=== PATIENT | female | born 1965 | race Caucasian/White ===

== ENCOUNTER 2017-11-15 07:54 | Outpatient (CLI) | payer OTHER ==
--- NOTE | 2017-11-21 14:25 | MMO ---
BILATERAL SCREENING MAMMOGRAM: Date: 11/15/17 COMPARISON: 03/12/10. HISTORY: Screening mammography. FINDINGS: This patient's mammogram was interpreted with the assistance of computer-aided detection. The breast parenchyma is primarily fatty replaced. Benign calcifications are present bilaterally. There is no dominant mass or architectural distortion. No concerning microcalcifications are noted. IMPRESSION: BIRADS 2: Benign Finding(s) Annual screening mammography recommended. POS: [facility]
== END 2017-11-15 07:55 | disposition home or self-care (01) ==
LOC: SCSMAMMO 07:54
PROVIDERS: ATTEND Family Medicine
DX: Z12.31 Encounter for screening mammogram for malignant neoplasm of breast (principal)
CPT/HCPCS: 77067

== ENCOUNTER 2017-12-08 12:38 | Outpatient (CLI) | payer OTHER ==
--- NOTE | 2017-12-08 14:07 | MRI ---
MRI CERVICAL SPINE WITHOUT CONTRAST: HISTORY: Left shoulder pain, extending to her jaw x 3 months. COMPARISON: None. TECHNIQUE: Cervical spine MRI is performed without intravenous Gadolinium administration. Multisequential, mult iplanar imaging is performed. FINDINGS: There is diffuse T1 hypointensity of the visualized cervical and upper thoracic vertebrae as well as the clivus. Correlate for anemia or a marrow infiltrative process. Visualized parenchyma, cervicome dullary junction, cervical cord, and the upper thoracic cord have a normal size and signal intensity. No significant SIR hyperintensity to suggest vertebral body edema or ligamentous injury. C2-C3: Minimal central disk-osteophyte complex. No significant central canal stenosis. Neural fora micky are patent. C3-C4: No significant disk-osteophyte complex. No significant central canal stenosis. Mild bilater al foraminal narrowing. C4-C5: Broad-based disk-osteophyte complex abuts the thecal sac. Mild right foraminal narrowing. T he left neural foramen appears to be patent. C5-C6: There is a central disk-osteophyte complex that deforms the thecal sac and deforms the ventra l cord. Moderate central canal stenosis. No T2 hyperintensity of the cord. Bilaterally, neural for kian are patent. C6-C7: There is a broad-based left paracentral disk-osteophyte complex with superior disk extrusion to the posterior margin of C6. There is deformity of the central and left aspect of the cord. No T2 hyperintensity of the cord. Moderate central canal stenosis. Mild right foraminal narrowing. Left neural foramen is patent. C7-T1: No significant disk-osteophyte complex. No significant central canal stenosis. Neural francia en are patent. IMPRESSION: Degenerative change of the cervical spine as detailed above. There is moderate central canal stenosi s at C5-C6, C6 vertebral body, and the C6-C7 level due to disk-osteophyte complexes as defined above. POS: [facility]
--- NOTE | 2017-12-08 14:44 | MRI ---
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 FINDINGS: There is advanced osteoarthritic change involving the glenohumeral joint with multiple subchondral cy st-like abnormalities seen involving the central glenoid and posterior glenoid. There is a type II S LAP tear extending from approximately the 2 o'clock position through the 4 to 5 o'clock position. Th ere is a paralabral cyst seen along the inferior and posterior aspect of the glenoid measuring 1.1 cm . There is moderate tendinosis of the intraarticular biceps tendon. There is moderate AC joint oste oarthrosis. There is mild tendinosis of the supraspinatus and infraspinatus. A small amount of flui d is seen in the subacromial and subdeltoid bursa. No muscular atrophy is evident. IMPRESSION: 1. Prominent areas of full-thickness articular cartilage thinning and subchondral cyst formation inv olving the central and posterior glenoid suspicious for changes of osteoarthrosis. This can be secon snehal to entity such as calcium pyrophosphate dihydrate deposition disease or prior trauma. Recommend correlation with patient's radiograph. 2. Findings suspicious of a long type II superior labrum anterior to posterior tear extending from a pproximately the 2 o'clock position to estimated to approximately the 4 o'clock position. The full e xtent of the this labral tear is not fully delineated on the current examination due to the lack of i ntraarticular contrast. There is a prominent paralabral cyst seen along the inferior and posterior a spect of the glenoid. Followup MR arthrogram of the left shoulder may be helpful for improved deline ation of the extent of the glenoid tear. 3. Moderate acromioclavicular joint osteoarthrosis. 4. Moderate tendinosis of the biceps tendon, supraspinatus, and infraspinatus tendon. POS: [facility]
== END 2017-12-08 12:39 | disposition home or self-care (01) ==
LOC: TBSIIMAG 12:38
PROVIDERS: ATTEND Family Medicine
DX: G56.92 Unspecified mononeuropathy of left upper limb (principal); M19.012 Primary osteoarthritis, left shoulder; M75.22 Bicipital tendinitis, left shoulder; M75.92 Shoulder lesion, unspecified, left shoulder; M47.892 Other spondylosis, cervical region; M48.02 Spinal stenosis, cervical region; M50.223 Other cervical disc displacement at C6-C7 level; M99.81 Other biomechanical lesions of cervical region
CPT/HCPCS: 72141

== ENCOUNTER 2018-02-07 12:17 | Outpatient (CLI) | payer OTHER ==
[2018-02-07] MEDS ORDERED: Lidocaine 1% PF 10 ML AMP ONE (12:45)
[2018-02-07] MEDS ORDERED: Gadobenate Dimeglumine 529 MG/1 ML (20ML VIAL) ONE (12:45)
[2018-02-07] MEDS ORDERED: EPINEPHrine 1 MG/ML AMP ONE (12:45)
[2018-02-07] MEDS ORDERED: Iopamidol 300 61% 50 ML VIAL FS ONE (12:45)
--- NOTE | 2018-02-07 15:55 | RAD ---
LEFT SHOULDER ARTHROGRAM: HISTORY: Left shoulder pain. Injury. EXPOSURE: 1.2 minutes. 230.6 mGy per m2. FINDINGS: The initial three views of the left shoulder demonstrate preservation of the glenohumeral joint space . No fracture or dislocation. Successful left shoulder. A total of 15 mL of contrast admixture was administered into the joint spa ce. No immediate or post procedure complications. TECHNIQUE: Consent obtained to perform a left shoulder arthrogram. The left shoulder was prepped and draped in a sterile fashion, and 1% Lidocaine buffered with sodium bicarbonate was used for local anesthesia. Under fluoroscopic guidance, a 22 gauge spinal needle was advanced into the left shoulder joint space , and 15 mL of the contrast admixture was administered. The patient tolerated the procedure well. N o immediate or post procedure complications. IMPRESSION: Successful left shoulder arthrogram. Please refer to left shoulder MRI for further details. POS: [facility]
--- NOTE | 2018-02-07 17:09 | MRI ---
MRI LEFT SHOULDER WITH CONTRAST 02/07/18 HISTORY: Left shoulder arthrogram. Labral tear. COMPARISON: MRI 12/08/17 left shoulder. FINDINGS: BICEPS TENDON: The extra-articular and intra-articular biceps tendon are intact. Mild intra-articular tendinosis. LABRUM: There is tear of the posterior superior labrum as seen through the posterior labrum. Adjacent to the inferior labral tear at 6 o'clock, is a paralabral cyst containing contrast. CARTILAGE: There are full thickness cartilage fissures of the central glenoid with subchondral cyst formation. There are a few high grade cartilage fissures of the central weightbearing surface of the humeral head. ROTATOR CUFF: Intact. Mild to moderate tendinosis. No full thickness perforation. BONES: There is a type II acromion. Moderate degenerative disease acromioclavicular joint. MUSCLES: Muscle bulk is normal. IMPRESSION: 1. Extensive labral tear from the superior labrum all the way to the posterior and inferior labr um with paralabral cyst inferiorly at 6 o'clock containing contrast. 2. Moderate tendinosis of the supraspinatus and infraspinatus tendons and intra-articular biceps tendon. 3. Full thickness cartilage defects of the central glenoid and posterior glenoid with cortical d efects, articular surface remodeling, as well as small osteophyte formation of the humeral head, moshe lar to the prior examination. POS: [facility]
== END 2018-02-07 12:18 | disposition home or self-care (01) ==
LOC: RAD 12:17
PROVIDERS: ATTEND Family Medicine
DX: M25.512 Pain in left shoulder (principal); G89.29 Other chronic pain; S43.492A Other sprain of left shoulder joint, initial encounter; S43.432A Superior glenoid labrum lesion of left shoulder, initial encounter; M67.814 Other specified disorders of tendon, left shoulder; M25.712 Osteophyte, left shoulder; M94.9 Disorder of cartilage, unspecified
CPT/HCPCS: 23350; A9579; J0171; J7050

== ENCOUNTER 2018-07-09 06:12 | Observation (INO) | payer OTHER ==
[2018-07-06 16:29] VITALS: BMI 55.0
[2018-07-09 06:56] LABS: #Eosinphils 0.2 thou/uL (0.0-0.7); #Lymphocytes 3.1 thou/uL (1.20-3.40); #Monocytes 0.4 thou/uL (0.11-0.59); #Neutrophils 4.9 thou/uL (1.40-6.50); %Basophils 0.4 % (0.0-1.0); %Eosinophils 2.8 % (0.0-10.0); %Monocytes 4.5 % (0.0-10.0); %Neutrophils 56.3 % (42.0-75.0); Hemoglobin 13.1 g/dL (12.0-16.0); Mean Corpuscular HGB CONC 34.1 g/dL (32.0-36.0); Mean Corpuscular Hemoglobin 26.5 pg (27.0-31.0); Mean Corpuscular Volume 77.8 fL (78.0-98.0); Mean Platelet Volume 10.1 fL (7.4-10.4); Platelet Count 282 thou/uL (130-400); RBC Distribution Width 14.4 % (11.5-14.5); Red Blood Cell (RBC) Count 4.93 mill/uL (4.20-5.40); White Blood Cell (WBC) Count 8.6 thou/uL (4.8-10.8)
[2018-07-09 07:12] LABS: Anion Gap 12 mmol/L (10-20); BUN (Urea Nitrogen) 13 mg/dL (9.8-20.1); Calc. Creatinine Clearance 179 mL/min (70-130); Calcium 9.7 mg/dL (7.8-10.44); Carbon Dioxide 30 mmol/L (22-29); Chloride 101 mmol/L (98-107); Estimated GFR-MDRD Greater than 90; Glucose 105 mg/dL (70-105); Potassium 3.6 mmol/L (3.5-5.1); Sodium 139 mmol/L (136-145)
[2018-07-09 07:17] LABS: Eosinophils 3 % (0-10); Lymphocytes 39 % (21-51); MDiff Complete? YES; Microcytosis SLIGHT = 6-15 cells (100X) (0-5/hpf); Monocytes 7 % (0-10); Neutrophil 47 % (42-75); Platelet Morphology Comment Appears Adequate; Reactive Lymphocytes 4 % (0-10)
[2018-07-09] MEDS ORDERED: Sodium Chloride 0.9% 10 ML ONE (07:22)
[2018-07-09] MEDS ORDERED: CEFAZOLIN 2 GM/50 ML BAG ONE (07:48)
[2018-07-09] MEDS ORDERED: Midazolam HCl 2 mg/2 ml Vial ONE (07:51)
[2018-07-09] MEDS ORDERED: Fentanyl 100 MCG/2 ML VIAL ONE ×3 (09:33→12:01)
--- NOTE | 2018-07-09 11:18 | OP ---
DATE OF PROCEDURE: 07/09/2018 CABLE TELEVISION ACCESS COORDINATOR: Alan Ambrosio PA-C. PROCEDURES PERFORMED: Anterior cervical diskectomy C5-C6 and C6-C7, interbody arthrodesis, intervertebral biomechanical device, local morselized autograft, demineralized bone matrix, anterior titanium instrumentation C5-C6. and C6-C7. DESCRIPTION OF PROCEDURE: The patient was brought to the operating room and intubated. She was positioned supine with the head in modest extension on a gel-filled donut. Incision was made in the right precervical area and dissected medial to the sternocleidomastoid muscle, identified the anterior cervical spine, and the level was confirmed by x-ray. Exposure was quite difficult given her very large neck. We next debrided the anterior osteophytes, placed distraction across the disk spaces, and using operative microscope and microdissection techniques, completely decompressed the intervertebral disk down the level of the dura at C5-C6 and C6-C7. As expected some solid disk material extended behind the C6 vertebral body. The bony endplates were then decorticated for the purpose of arthrodesis and appropriate-sized intervertebral biomechanical PEEK device was brought into the field and filled with demineralized bone matrix and local morselized autograft, and tapped into place securely at C5-C6. and C6-C7. Next, an anterior plate was brought into the field and secured to C5, C6, and C7 using two 14-mm screws at each level. The wound was then extensively irrigated and maximum hemostasis was secured, and the wound was closed in anatomic layers over drain. Job ID: [id number]
[2018-07-09] MEDS ORDERED: Milk Of Magnesia 30 ML UDCUP PO PRN (11:49)
[2018-07-09] MEDS ORDERED: diphenhydrAMINE 50 MG/ML VIAL IVP PRN (11:49)
[2018-07-09] MEDS ORDERED: Ondansetron PF 4 MG/2 ML Vial IVP PRN (11:49)
[2018-07-09] MEDS ORDERED: diphenhydrAMINE 25 MG CAP PO PRN (11:49)
[2018-07-09] MEDS ORDERED: HYDROcodone/Acetaminophen 10/325 mg Tablet PO PRN (11:49)
[2018-07-09] MEDS ORDERED: Promethazine HCl 12.5 MG SUPP PR PRN (11:49)
[2018-07-09] MEDS ORDERED: tiZANidine HCl 4 MG TAB PO PRN (11:49)
[2018-07-09] MEDS ORDERED: Promethazine 25 MG TAB PO PRN (11:49)
[2018-07-09] MEDS ORDERED: Promethazine HCl 25 MG/ML VIAL IM PRN ×2 (11:49→12:11)
[2018-07-09] MEDS ORDERED: Morphine 4 MG/ML VIAL SLOW IVP PRN (11:49)
[2018-07-09] MEDS ORDERED: Ondansetron HCl/PF 4 MG/2 ML Vial IVP PRN (12:11)
[2018-07-09] MEDS ORDERED: Promethazine HCl 25 MG/ML VIAL SLOW IVP PRN (12:11)
[2018-07-09] MEDS: Ketorolac Tromethamine 30 MG/ML VIAL IVP SCH ×3 (12:59→23:52)
[2018-07-09] MEDS: Sodium Chloride 0.9% 1,000 ML IV SCH (13:19)
[2018-07-09] MEDS ORDERED: Dextrose 5% in Water 1,000 ML IV PRN (13:41)
[2018-07-09] MEDS ORDERED: Senokot S 8.6-50 MG TAB PO PRN (13:41)
[2018-07-09] MEDS ORDERED: Cepastat Lozenges 1 LOZ PO PRN (13:41)
[2018-07-09] MEDS ORDERED: HumaLOG 300 UNITS/3 ML VIAL SC PRN ×2 (13:41)
[2018-07-09] MEDS ORDERED: Zolpidem Tartrate 5 MG TAB PO PRN (13:41)
[2018-07-09] MEDS ORDERED: Sodium Chloride 0.65% Nasal 44 ML BOT EA NARE PRN (13:41)
[2018-07-09] MEDS ORDERED: Artificial Tears 18 DROP/0.9 ML EA EYE PRN (13:41)
[2018-07-09] MEDS ORDERED: Loperamide HCl 2 MG CAP PO PRN (13:41)
[2018-07-09] MEDS ORDERED: Eucerin (Mineral Oil/Petrolatum,White) 30 gm Jar TOP PRN (13:41)
[2018-07-09] MEDS ORDERED: Bisacodyl 10 MG SUPP PR PRN (13:41)
[2018-07-09] MEDS ORDERED: Diabetic Tussin 200 MG/10 ML UDCUP PO PRN (13:41)
[2018-07-09] MEDS ORDERED: hydrALAZINE 20 MG/ML VIAL SLOW IVP PRN (13:41)
[2018-07-09] MEDS ORDERED: Dextrose 50% Abboject 50 ML SYRINGE SLOW IVP PRN (13:41)
--- NOTE | 2018-07-09 13:44 | PDOC.PN ---
- Subjective Encounter Start Date: 07/09/18 Encounter Start Time: 15:30 -: old records requested/rev pt had cervical dissectomy she has no pain, she denies chest pain or dyspnea - Objective Resuscitation Status - Order Detail: 07/09/18 13:41 Resuscitation Status Routine Resuscitation Status: FULL: Full Resuscitation MAR Reviewed: Yes Vital Signs & Weight: Vital Signs (12 hours) Temp Pulse Resp BP Pulse Ox 07/09/18 13:23 71 136/84 07/09/18 12:35 71 160/91 H 07/09/18 12:25 97.5 F L 70 18 171/99 H 97 Weight Weight 301 lb Result Diagrams: 07/09/18 06:44 07/09/18 06:44 Additional Labs: Accuchecks 07/09/18 13:30 POC Glucose 164 H Phys Exam - Physical Examination Constitutional: NAD HEENT: PERRLA, moist MMs, sclera anicteric Neck: no JVD, supple surgical site with dressing, drain+ Respiratory: no wheezing, no rales, no rhonchi Cardiovascular: RRR, no significant murmur, no rub Gastrointestinal: soft, non-tender, no distention, positive bowel sounds obesity+ Musculoskeletal: no edema, pulses present Neurological: non-focal, normal sensation, moves all 4 limbs Lymphatic: no nodes Psychiatric: normal affect, A&O x 3 Skin: no rash, normal turgor Dx/Plan (1) S/P cervical discectomy Code(s): Z98.890 - OTHER SPECIFIED POSTPROCEDURAL STATES Status: Acute (2) Morbid obesity with BMI of 50.0-59.9, adult Code(s): E66.01 - MORBID (SEVERE) OBESITY DUE TO EXCESS CALORIES; Z68.43 - BODY MASS INDEX (BMI) 50-59.9, ADULT Status: Chronic (3) Hypertension Code(s): I10 - ESSENTIAL (PRIMARY) HYPERTENSION Status: Chronic (4) Dyslipidemia Code(s): E78.5 - HYPERLIPIDEMIA, UNSPECIFIED Status: Chronic (5) Diabetes type 2, controlled Code(s): E11.9 - TYPE 2 DIABETES MELLITUS WITHOUT COMPLICATIONS Status: Chronic (6) Hypothyroidism Code(s): E03.9 - HYPOTHYROIDISM, UNSPECIFIED Status: Chronic (7) Anxiety and depression Code(s): F41.9 - ANXIETY DISORDER, UNSPECIFIED; F32.9 - MAJOR DEPRESSIVE DISORDER, SINGLE EPISODE, UNSPECIFIED Status: Chronic - Plan cont current plan of care * medication reviewed as below * symptomatic treatment * home medication reconciled * code status full code addressed * pepcid for GI prophylaxis * pain controlled * medically stable for now * will start hyperglycemia protocol orders * hold BP meds for SBP <120 * will follow. Review of Systems - Review of Systems ENT: negative: Ear Pain, Ear Discharge, Nose Pain, Nose Discharge, Nose Congestion, Mouth Pain, Mouth Swelling, Throat Pain, Throat Swelling, Other Respiratory: negative: Cough, Dry, Shortness of Breath, Hemoptysis, SOB with Excertion, Pleuritic Pain, Sputum, Wheezing Cardiovascular: negative: chest pain, palpitations, orthopnea, paroxysmal nocturnal dyspnea, edema, light headedness, other Gastrointestinal: negative: Nausea, Vomiting, Abdominal Pain, Diarrhea, Constipation, Melena, Hematochezia, Other Genitourinary: negative: Dysuria, Frequency, Incontinence, Hematuria, Retention , Other Musculoskeletal: negative: Neck Pain, Shoulder Pain, Arm Pain, Back Pain, Hand Pain, Leg Pain, Foot Pain, Other Skin: negative: Rash, Lesions, Ian, Bruising, Other - Medications/Allergies Allergies/Adverse Reactions: Allergies Allergy/AdvReac Type Severity Reaction Status Date / Time latex Allergy Rash Verified 07/09/18 12:48 tramadol Allergy Rash Verified 07/09/18 12:48 Medications: Current Medications Hydrocodone Bitart/Acetaminophen ([place] 10/325) 1 tab PO Q4H PRN PRN Reason: PAIN (1-3) Hydrocodone Bitart/Acetaminophen ([place] 10/325) 2 tab PO Q4H PRN PRN Reason: PAIN (4-6) Artificial Tears (Tears Naturale) 2 drop EA EYE PRN PRN PRN Reason: Dry Eyes Atenolol (Tenormin) 50 mg PO BID [facility] Atenolol (Tenormin) 50 mg PO BID [facility] Bisacodyl (Dulcolax) 10 mg MO DAILYPRN PRN PRN Reason: Constipation Dextrose/Water (Dextrose 50%) 25 gm SLOW IVP PRN PRN PRN Reason: Hypoglycemia Diphenhydramine HCl (Benadryl) 25 mg PO Q6H PRN PRN Reason: Itching Diphenhydramine HCl (Benadryl) 25 mg IVP Q6H PRN PRN Reason: Itching Duloxetine HCl (Cymbalta) 30 mg PO DAILY [facility] Duloxetine HCl (Cymbalta) 30 mg PO DAILY [facility] Famotidine (Pepcid) 20 mg PO BID [facility] Fentanyl (Pacu-Sublimaze) 50 mcg SLOW IVP Q10MIN PRN PRN Reason: Moderate to Severe Pain (6-10) Stop: 07/09/18 15:11 Glucagon (Glucagon) 1 mg IM PRN PRN PRN Reason: Hypoglycemia Guaifenesin (Robitussin Sf) 200 mg PO Q4H PRN PRN Reason: Cough Hydralazine HCl (Apresoline) 10 mg SLOW IVP Q4H PRN PRN Reason: SBP > 180 and HR < 70 Hydrochlorothiazide (Hydrochlorothiazide) 25 mg PO QAM [facility] Hydrochlorothiazide (Hydrochlorothiazide) 25 mg PO QAM [facility] Sodium Chloride (Normal Saline 0.9%) 1,000 mls @ 75 mls/hr IV .[id number] [facility] Last Admin: 07/09/18 13:19 Dose: 1,000 mls Cefazolin Sodium/Dextrose 2 gm (/ Device) 50 mls @ 100 mls/hr IVPB 0000,0800, 1600 [facility] Dextrose/Water (D5w) 1,000 mls @ 0 mls/hr IV .Q0M PRN PRN Reason: Hypoglycemia Insulin Human Lispro (Humalog) 0 units SC .MODERATE SLIDING SC PRN PRN Reason: Moderate Correctional Scale Insulin Human Lispro (Humalog) 0 units SC .BEDTIME SLIDING SC PRN PRN Reason: Bedtime Correctional Scale Ketorolac Tromethamine (Toradol) 15 mg IVP Q6HR [facility] Stop: 07/11/18 06:01 Last Admin: 07/09/18 12:59 Dose: Not Given Levothyroxine Sodium (Synthroid) 125 mcg PO 0600 [facility] Levothyroxine Sodium (Synthroid) 12.5 mcg PO 0600 [facility] Loperamide HCl (Imodium) 2 mg PO PRN PRN PRN Reason: Diarrhea/Loose Stools Losartan Potassium (Cozaar) 100 mg PO DAILY [facility] Magnesium Hydroxide (Milk Of Magnesium) 30 ml PO Q12H PRN PRN Reason: Constipation Metformin HCl (Glucophage) 1,000 mg PO BID-WM [facility] Mineral Oil/White Petrolatum (Eucerin Cream) 0 gm TOP BIDPRN PRN PRN Reason: Dry Skin Morphine Sulfate (Morphine) 2 mg SLOW IVP Q1H PRN PRN Reason: Moderate Breakthrough Pain Morphine Sulfate (Morphine) 4 mg SLOW IVP Q1H PRN PRN Reason: SEVERE BREAKTHROUGH PAIN Non-Formulary Medication (Levothyroxine Sodium [Synthroid]) 137 mcg PO DAILY [facility] Non-Formulary Medication (Losartan Potassium [Cozaar]) 100 mg PO DAILY [facility] Non-Formulary Medication (Metformin Hcl [Metformin Hcl]) 1,000 mg PO BID [facility] Ondansetron HCl (Zofran) 4 mg IVP Q24H PRN PRN Reason: Nausea/Vomiting Ondansetron HCl (Pacu-Zofran) 4 mg IVP ONE PRN PRN Reason: Nausea/Vomiting Stop: 07/09/18 15:11 Promethazine HCl (Phenergan) 12.5 mg IM Q4H PRN PRN Reason: Nausea/Vomiting Promethazine HCl (Phenergan) 12.5 mg PO Q4H PRN PRN Reason: Nausea/Vomiting Promethazine HCl (Phenergan Suppository) 12.5 mg MO Q4H PRN PRN Reason: Nausea/Vomiting Promethazine HCl (Pacu-Phenergan) 6.25 mg SLOW IVP ONE PRN PRN Reason: Nausea/Vomiting Stop: 07/09/18 15:11 Promethazine HCl (Pacu-Phenergan) 6.25 mg IM ONE PRN PRN Reason: Nausea/Vomiting Stop: 07/09/18 15:11 Senna/Docusate Sodium (Senokot S) 2 tab PO BID PRN PRN Reason: Constipation Sodium Chloride (Flush - Normal Saline) 10 ml IVF Q12HR [facility] Sodium Chloride (Flush - Normal Saline) 10 ml IVF PRN PRN PRN Reason: Saline Flush Sodium Chloride ([place]al [place] 0.65%) 0 ml EA NARE QIDPRN PRN PRN Reason: Nasal Congestion Throat Lozenges (Cepastat Lozenges) 1 yasir PO Q2H PRN PRN Reason: Sore Throat Tizanidine HCl (Zanaflex) 4 mg PO Q6H PRN PRN Reason: MUSCLE SPASM Zolpidem Tartrate (Ambien) 5 mg PO HSPRN PRN PRN Reason: Insomnia
[2018-07-09] MEDS: HYDROcodone/Acetaminophen 10/325 mg Tablet PO PRN ×2 (14:58→22:00)
[2018-07-09] MEDS: metFORMIN 500 MG TAB PO SCH ×2 (15:09→17:04)
[2018-07-09] MEDS: CEFAZOLIN 2 GM/50 ML-DEXTROSE 2 GM in Premix Bag 1 BAG IVPB SCH (16:02)
[2018-07-09] MEDS ORDERED: Ketorolac Tromethamine 30 MG/ML VIAL ONE (16:45)
[2018-07-09] MEDS ORDERED: PROPOFOL 200 MG/20 ML VIAL ONE (16:45)
[2018-07-09] MEDS ORDERED: Ondansetron PF 4 MG/2 ML Vial ONE (16:45)
[2018-07-09] MEDS ORDERED: Glycopyrrolate 0.2 MG/ML 5 ML SYRINGE ONE (16:45)
[2018-07-09] MEDS ORDERED: Dexamethasone 20 MG/5 ML VIAL ONE (16:45)
[2018-07-09] MEDS ORDERED: Rocuronium Bromide 10 MG/ML (10ML VIAL) ONE (16:45)
[2018-07-09] MEDS ORDERED: Lidocaine 1% PF 5 ML VIAL ONE (16:45)
[2018-07-09] MEDS ORDERED: metFORMIN 500 MG TAB PO SCH (17:00)
[2018-07-09] MEDS: Atenolol 50 MG TAB PO SCH (20:09)
[2018-07-09] MEDS: Famotidine 20 MG TAB PO SCH (20:10)
[2018-07-09] MEDS ORDERED: Atenolol 50 MG TAB PO SCH (21:00)
[2018-07-10] MEDS: CEFAZOLIN 2 GM/50 ML-DEXTROSE 2 GM in Premix Bag 1 BAG IVPB SCH ×2 (00:04→08:13)
[2018-07-10] MEDS: Sodium Chloride 0.9% 1,000 ML IV SCH ×2 (02:29→09:50)
[2018-07-10] MEDS ORDERED: Levothyroxine Sodium 112 MCG TAB PO SCH (06:00)
[2018-07-10] MEDS ORDERED: Levothyroxine Sodium 125 MCG TAB PO SCH (06:00)
[2018-07-10] MEDS ORDERED: Levothyroxine Sodium 25 MCG TAB PO SCH ×2 (06:00)
[2018-07-10] MEDS: Ketorolac Tromethamine 30 MG/ML VIAL IVP SCH (06:29)
[2018-07-10 08:03] VITALS: TEMP 98.3
[2018-07-10] MEDS: metFORMIN 500 MG TAB PO SCH (08:13)
[2018-07-10] MEDS: HYDROcodone/Acetaminophen 10/325 mg Tablet PO PRN (08:14)
[2018-07-10] MEDS: Atenolol 50 MG TAB PO SCH (08:15)
[2018-07-10] MEDS: Famotidine 20 MG TAB PO SCH (08:15)
[2018-07-10 08:16] VITALS: BP 136/84
--- NOTE | 2018-07-10 08:22 | DIS ---
DATE OF ADMISSION: 07/09/2018 DATE OF DISCHARGE: 07/10/2018 HOSPITAL COURSE: The patient is a 52-year-old female who is status post C5-C7 ACDF for cervical degenerative disk disease. Following the surgery, she was transitioned to the [facility] floor where her pain has been well controlled with p.o. medications, she has been tolerating a soft diet, and she has been voiding appropriately. JUSTIN drain was placed intraoperatively, but only 40 mL out overnight. There was a small amount of incisional drainage which required reinforcement of the dressing. But this appears to have resolved and there is no active drainage at this time. The patient is sitting up comfortably in the chair this morning. She is awake, alert, in no acute distress. Her voice is slightly hoarse. Her incision is dry and soft. She has free active range of motion of all extremities, 5/5 strength throughout. We will plan to dismiss the patient back to the alf. She has been provided scripts for Tylenol No. 3 and ibuprofen 800. I have also written orders for soft diet and p.r.n. incentive spirometer. We will follow up with the patient in 2 weeks. I have provided discharge instructions. Job ID: [id number]
[2018-07-10] MEDS ORDERED: Hydrochlorothiazide 25 MG TAB PO SCH ×2 (09:00)
[2018-07-10] MEDS ORDERED: DULoxetine 30 MG CAP PO SCH ×2 (09:00)
[2018-07-10] MEDS ORDERED: Losartan 25 MG TAB PO SCH ×2 (09:00)
--- NOTE | 2018-07-10 09:56 | PDOC.PN ---
- Subjective Encounter Start Date: 07/10/18 Encounter Start Time: 08:20 Patient seen and examined. No new complaints. No overnight events - Objective Resuscitation Status - Order Detail: 07/09/18 13:41 Resuscitation Status Routine Resuscitation Status: FULL: Full Resuscitation MAR Reviewed: Yes Vital Signs & Weight: Vital Signs (12 hours) Temp Pulse Resp BP BP Pulse Ox 07/10/18 08:15 72 136/84 07/10/18 08:00 98.3 F 74 12 111/79 97 07/10/18 04:06 98.1 F 70 20 120/77 96 07/10/18 00:00 98 F 79 20 116/68 97 Weight Weight 301 lb I&O: 07/09/18 07/10/18 07/11/18 06:59 06:59 06:59 Intake Total 1890 900 Output Total 265 390 Balance 1625 510 Result Diagrams: 07/09/18 06:44 07/09/18 06:44 Additional Labs: Accuchecks 07/09/18 07/09/18 07/09/18 20:19 16:16 13:30 POC Glucose 208 H 240 H 164 H Phys Exam - Physical Examination Constitutional: NAD HEENT: PERRLA, moist MMs, sclera anicteric Neck: no JVD, supple dressing and drain in place Respiratory: no wheezing, no rales, no rhonchi Cardiovascular: RRR, no significant murmur, no rub Gastrointestinal: soft, non-tender, no distention, positive bowel sounds Musculoskeletal: no edema, pulses present Neurological: non-focal, normal sensation, moves all 4 limbs Lymphatic: no nodes Psychiatric: normal affect, A&O x 3 Skin: no rash, normal turgor Dx/Plan (1) S/P cervical discectomy Code(s): Z98.890 - OTHER SPECIFIED POSTPROCEDURAL STATES Status: Acute (2) Morbid obesity with BMI of 50.0-59.9, adult Code(s): E66.01 - MORBID (SEVERE) OBESITY DUE TO EXCESS CALORIES; Z68.43 - BODY MASS INDEX (BMI) 50-59.9, ADULT Status: Chronic (3) Hypertension Code(s): I10 - ESSENTIAL (PRIMARY) HYPERTENSION Status: Chronic (4) Dyslipidemia Code(s): E78.5 - HYPERLIPIDEMIA, UNSPECIFIED Status: Chronic (5) Diabetes type 2, controlled Code(s): E11.9 - TYPE 2 DIABETES MELLITUS WITHOUT COMPLICATIONS Status: Chronic (6) Hypothyroidism Code(s): E03.9 - HYPOTHYROIDISM, UNSPECIFIED Status: Chronic (7) Anxiety and depression Code(s): F41.9 - ANXIETY DISORDER, UNSPECIFIED; F32.9 - MAJOR DEPRESSIVE DISORDER, SINGLE EPISODE, UNSPECIFIED Status: Chronic - Plan cont current plan of care * overall doing well * will need mechanical soft diet for few days * her voice is improving * her pain controlled * medication reviewed as below * symptomatic treatment * drain will be removed today * resume home meds on discharge. * plan for discharge today * will sign off Review of Systems - Review of Systems ENT: negative: Ear Pain, Ear Discharge, Nose Pain, Nose Discharge, Nose Congestion, Mouth Pain, Mouth Swelling, Throat Pain, Throat Swelling, Other Respiratory: negative: Cough, Dry, Shortness of Breath, Hemoptysis, SOB with Excertion, Pleuritic Pain, Sputum, Wheezing Cardiovascular: negative: chest pain, palpitations, orthopnea, paroxysmal nocturnal dyspnea, edema, light headedness, other Gastrointestinal: negative: Nausea, Vomiting, Abdominal Pain, Diarrhea, Constipation, Melena, Hematochezia, Other Genitourinary: negative: Dysuria, Frequency, Incontinence, Hematuria, Retention , Other Musculoskeletal: negative: Neck Pain, Shoulder Pain, Arm Pain, Back Pain, Hand Pain, Leg Pain, Foot Pain, Other Skin: negative: Rash, Lesions, Ian, Bruising, Other - Medications/Allergies Allergies/Adverse Reactions: Allergies Allergy/AdvReac Type Severity Reaction Status Date / Time latex Allergy Rash Verified 07/09/18 12:48 tramadol Allergy Rash Verified 07/09/18 12:48 Medications: Current Medications Hydrocodone Bitart/Acetaminophen ([place] 10/325) 1 tab PO Q4H PRN PRN Reason: PAIN (1-3) Hydrocodone Bitart/Acetaminophen ([place] 10/325) 2 tab PO Q4H PRN PRN Reason: PAIN (4-6) Last Admin: 07/10/18 08:14 Dose: 2 tab Artificial Tears (Tears Naturale) 2 drop EA EYE PRN PRN PRN Reason: Dry Eyes Atenolol (Tenormin) 50 mg PO BID [facility] Last Admin: 07/10/18 08:15 Dose: 50 mg Bisacodyl (Dulcolax) 10 mg [place] DAILYPRN PRN PRN Reason: Constipation Dextrose/Water (Dextrose 50%) 25 gm SLOW IVP PRN PRN PRN Reason: Hypoglycemia Diphenhydramine HCl (Benadryl) 25 mg PO Q6H PRN PRN Reason: Itching Last Admin: 07/10/18 04:06 Dose: 25 mg Diphenhydramine HCl (Benadryl) 25 mg IVP Q6H PRN PRN Reason: Itching Duloxetine HCl (Cymbalta) 30 mg PO DAILY [facility] Last Admin: 07/10/18 08:15 Dose: 30 mg Famotidine (Pepcid) 20 mg PO BID [facility] Last Admin: 07/10/18 08:15 Dose: 20 mg Glucagon (Glucagon) 1 mg IM PRN PRN PRN Reason: Hypoglycemia Guaifenesin (Robitussin Sf) 200 mg PO Q4H PRN PRN Reason: Cough Hydralazine HCl (Apresoline) 10 mg SLOW IVP Q4H PRN PRN Reason: SBP > 180 and HR < 70 Hydrochlorothiazide (Hydrochlorothiazide) 25 mg PO QAM [facility] Last Admin: 07/10/18 08:16 Dose: 25 mg Sodium Chloride (Normal Saline 0.9%) 1,000 mls @ 75 mls/hr IV .[id number] [facility] Last Admin: 07/10/18 09:50 Dose: Not Given Cefazolin Sodium/Dextrose 2 gm (/ Device) 50 mls @ 100 mls/hr IVPB 0000,0800, 1600 [facility] Last Admin: 07/10/18 08:13 Dose: 50 mls Dextrose/Water (D5w) 1,000 mls @ 0 mls/hr IV .Q0M PRN PRN Reason: Hypoglycemia Insulin Human Lispro (Humalog) 0 units SC .MODERATE SLIDING SC PRN PRN Reason: Moderate Correctional Scale Last Admin: 07/09/18 17:05 Dose: 4 unit Insulin Human Lispro (Humalog) 0 units SC .BEDTIME SLIDING SC PRN PRN Reason: Bedtime Correctional Scale Last Admin: 07/09/18 20:19 Dose: 2 units Ketorolac Tromethamine (Toradol) 15 mg IVP Q6HR [facility] Stop: 07/11/18 06:01 Last Admin: 07/10/18 06:29 Dose: 15 mg Levothyroxine Sodium (Synthroid) 112 mcg PO 0600 [facility] Last Admin: 07/10/18 06:28 Dose: 112 mcg Levothyroxine Sodium (Synthroid) 25 mcg PO 0600 [facility] Last Admin: 07/10/18 06:29 Dose: 25 mcg Loperamide HCl (Imodium) 2 mg PO PRN PRN PRN Reason: Diarrhea/Loose Stools Losartan Potassium (Cozaar) 100 mg PO DAILY [facility] Last Admin: 07/10/18 08:16 Dose: 100 mg Magnesium Hydroxide (Milk Of Magnesium) 30 ml PO Q12H PRN PRN Reason: Constipation Metformin HCl (Glucophage) 1,000 mg PO BID[facility] Last Admin: 07/10/18 08:13 Dose: 1,000 mg Mineral Oil/White Petrolatum (Eucerin Cream) 0 gm TOP BIDPRN PRN PRN Reason: Dry Skin Morphine Sulfate (Morphine) 2 mg SLOW IVP Q1H PRN PRN Reason: Moderate Breakthrough Pain Morphine Sulfate (Morphine) 4 mg SLOW IVP Q1H PRN PRN Reason: SEVERE BREAKTHROUGH PAIN Ondansetron HCl (Zofran) 4 mg IVP Q24H PRN PRN Reason: Nausea/Vomiting Promethazine HCl (Phenergan) 12.5 mg IM Q4H PRN PRN Reason: Nausea/Vomiting Promethazine HCl (Phenergan) 12.5 mg PO Q4H PRN PRN Reason: Nausea/Vomiting Promethazine HCl (Phenergan Suppository) 12.5 mg [place] Q4H PRN PRN Reason: Nausea/Vomiting Senna/Docusate Sodium (Senokot S) 2 tab PO BID PRN PRN Reason: Constipation Sodium Chloride (Flush - Normal Saline) 10 ml IVF Q12HR [facility] Last Admin: 07/10/18 08:13 Dose: 10 ml Sodium Chloride (Flush - Normal Saline) 10 ml IVF PRN PRN PRN Reason: Saline Flush Sodium Chloride ([place] Nasal [place] 0.65%) 0 ml EA NARE QIDPRN PRN PRN Reason: Nasal Congestion Throat Lozenges (Cepastat Lozenges) 1 yasir PO Q2H PRN PRN Reason: Sore Throat Tizanidine HCl (Zanaflex) 4 mg PO Q6H PRN PRN Reason: MUSCLE SPASM Zolpidem Tartrate (Ambien) 5 mg PO HSPRN PRN PRN Reason: Insomnia
== END 2018-07-10 10:15 | disposition home or self-care (01) ==
LOC: SDC 06:12 → SURG B 12:37
PROVIDERS: ADMIT Neurological Surgery; ATTEND Neurological Surgery
PROC: 0RG20A0 Fusion of 2 or more Cervical Vertebral Joints with Interbody Fusion Device, Anterior Approach, Anterior Column, Open Approach (ICD-10-PCS; principal; 2018-07-09)
PROC: 0RG2070 Fusion of 2 or more Cervical Vertebral Joints with Autologous Tissue Substitute, Anterior Approach, Anterior Column, Open Approach (ICD-10-PCS; 2018-07-09)
DX: M50.323 Other cervical disc degeneration at C6-C7 level (principal); I10 Essential (primary) hypertension; E11.9 Type 2 diabetes mellitus without complications; E66.01 Morbid (severe) obesity due to excess calories; Z68.43 Body mass index [BMI] 50.0-59.9, adult; E78.5 Hyperlipidemia, unspecified; E03.9 Hypothyroidism, unspecified; F41.9 Anxiety disorder, unspecified; F32.9 Major depressive disorder, single episode, unspecified; Z88.5 Allergy status to narcotic agent; Z91.040 Latex allergy status; Z79.84 Long term (current) use of oral hypoglycemic drugs; Z79.899 Other long term (current) drug therapy
CPT/HCPCS: 36415; 36416; 76000; 80048; 85025; 93005; 93010; 96365; 96366; 96375; 96376; C1713; C1776; G0378; J1100; J1885; J2001; J2250; J2405; J2704; J3010; J3490; Q0163

== ENCOUNTER 2018-07-24 13:18 | Outpatient (CLI) | payer OTHER ==
--- NOTE | 2018-07-24 13:51 | RAD ---
CERVICAL SPINE SERIES 3 VIEWS: Date: 07/24/18 HISTORY: Follow-up from surgery. FINDINGS: Vertebral bodies are normal in height. Anterior cervical fusion has been performed, with a plate and screws extending from C5 to C7. Markers of disc implants are within the confines of the intervening d isc levels. Alignment is good. IMPRESSION: Postoperative changes of the spine. POS: TPC
== END 2018-07-24 13:19 | disposition home or self-care (01) ==
LOC: TBSIIMAG 13:18
PROVIDERS: ATTEND Neurological Surgery
DX: M47.12 Other spondylosis with myelopathy, cervical region (principal); Z98.1 Arthrodesis status
CPT/HCPCS: 72040

== ENCOUNTER 2018-09-06 14:24 | Outpatient (CLI) | payer OTHER ==
--- NOTE | 2018-09-06 14:45 | RAD ---
EXAM: 3 views of the cervical spine HISTORY: Neck pain status post anterior fusion COMPARISON: 07/24/2018 FINDINGS: AP, lateral, swimmer's and open mouth odontoid views of the cervical spine shows normal hei ght and alignment of the vertebral bodies and intervertebral disc of fracture or subluxation. The patient is status post fusion of C5-C7 without perihardware lucency or fracture. The disc spacers are in good position within the disc spaces. No prevertebral soft tissue swelling is seen. IMPRESSION: Stable postsurgical changes of the cervical spine without evidence of complication.
== END 2018-09-06 14:25 | disposition home or self-care (01) ==
LOC: TBSIIMAG 14:24
PROVIDERS: ATTEND Neurological Surgery
DX: M47.12 Other spondylosis with myelopathy, cervical region (principal); Z98.890 Other specified postprocedural states
CPT/HCPCS: 72040